=== PATIENT | female | born 1955 | race American Indian/Alaskan Native ===

== ENCOUNTER 2016-06-26 16:18 | Emergency (ER) | payer OTHER ==
[2016-06-26 20:23] VITALS: BP 177/84
[2016-06-26] MEDS ORDERED: TORADOL IM ONE (20:30)
--- NOTE | 2016-06-26 22:20 | Emergency Department Report ---
Entered by BRAULIO BONILLA, acting as scribe for GEOVANNA DERAS PA. ED General Adult HPI - General Chief complaint: Extremity Problem,Nontraumatic Stated complaint: LT SIDE PAIN Time Seen by Provider: 06/26/16 20:18 Source: patient Mode of arrival: Ambulatory Limitations: No Limitations - History of Present Illness Initial comments: 61 year old female presents to the ED for evaluation of left posterior hip pain for 3 days. Patient reports pain as constant and notes it worsens with movement , walking, and weight bearing. She describes the pain as constant with radiation to left thigh. Patient reports her job requires standing and walking for long periods of time. Denies any falls or injuries. Denies weakness, tingling, numbness, abdominal pain, nausea, vomiting, and urinary symptoms. PMHx HTN and CHF. Onset/Timin -: days(s) Location: back (left flank) Radiation: other (left thigh) Consistency: constant Improves with: none Worsens with: movement, other (walking) Associated Symptoms: denies: chest pain, fever/chills, nausea/vomiting, weakness , other (abdominal pain, urinary symptoms) Treatments Prior to Arrival: other (Tylenol PM and Tums, no relief) - Related Data Home Medications Medication Instructions Recorded Confirmed Last Taken Aspirin [Aspirin BABY CHEW TAB] 81 mg PO QDAY 03/12/14 03/12/14 03/11/14 Nebivolol HCl [Bystolic] 10 mg PO QDAY 03/12/14 03/12/14 03/11/14 Olmesartan (Nf) [Benicar (Nf)] 40 mg PO QDAY 03/12/14 03/12/14 03/11/14 Previous Rx's Medication Instructions Recorded Last Taken Type amLODIPine [Norvasc] 10 mg PO DAILY #60 tablet 03/12/14 Unknown Rx Naproxen [Naprosyn TAB] 500 mg PO BID #60 tablet 06/26/16 Unknown Rx Allergies Allergy/AdvReac Type Severity Reaction Status Date / Time hydralazine HCl [From BiDil] Allergy Vomiting Verified 06/26/16 16:23 isosorbide dinitrate Allergy Vomiting Verified 06/26/16 16:23 [From BiDil] ED Review of Systems Comment: All other systems reviewed and negative Constitutional: denies: chills, fever Gastrointestinal: denies: abdominal pain, nausea, vomiting Genitourinary: denies: urgency, dysuria, frequency, hematuria Neurological: denies: weakness, numbness, paresthesias ED Past Medical Hx - Past Medical History Previous Medical History?: Yes Hx Hypertension: Yes Additional medical history: Was diagnosed with heart failure years ago but says it has been controlled and she no longer takes meds for it other than 81 mg ASA - Surgical History Additional Surgical History: Partial hysterectomy, left wrist cyst removal, left breast surgery for benign cyst removal - Social History Smoking Status: Never Smoker Substance Use Type: None - Medications Home Medications: Home Medications Medication Instructions Recorded Confirmed Last Taken Type Aspirin [Aspirin BABY CHEW TAB] 81 mg PO QDAY 03/12/14 03/12/14 03/11/14 History Nebivolol HCl [Bystolic] 10 mg PO QDAY 03/12/14 03/12/14 03/11/14 History Olmesartan (Nf) [Benicar (Nf)] 40 mg PO QDAY 03/12/14 03/12/14 03/11/14 History amLODIPine [Norvasc] 10 mg PO DAILY #60 tablet 03/12/14 Unknown Rx Naproxen [Naprosyn TAB] 500 mg PO BID #60 tablet 06/26/16 Unknown Rx ED Physical Exam - General Limitations: No Limitations General appearance: alert, in no apparent distress - Head Head exam: Present: atraumatic, normocephalic - Respiratory Respiratory exam: Present: normal lung sounds bilaterally. Absent: respiratory distress, wheezes, rales, rhonchi - Cardiovascular Cardiovascular Exam: Present: regular rate, normal rhythm, normal heart sounds. Absent: systolic murmur, diastolic murmur, rubs, gallop - GI/Abdominal GI/Abdominal exam: Present: soft. Absent: distended, tenderness, guarding, rebound - Extremities Exam Extremities exam: Present: normal inspection, normal capillary refill (less than 2 seconds) - Expanded Lower Extremity Exam Left Hip exam: Present: normal inspection, full ROM (pain with external and internal rotation), tenderness (to palpation) Upper Leg exam: Present: normal inspection, full ROM. Absent: tenderness Knee exam: Present: normal inspection, full ROM. Absent: tenderness Lower Leg exam: Present: normal inspection, full ROM Ankle exam: Present: normal inspection, full ROM Neuro vascular tendon exam: Absent: no vascular compromise, pulse deficit, abnormal cap refill, motor deficit, sensory deficit Gait: Positive: not tested/not observed - Back Exam Back exam: Present: normal inspection. Absent: CVA tenderness (R), CVA tenderness (L), paraspinal tenderness, vertebral tenderness - Expanded Back Exam Expanded Back exam: Positive Straight Leg Raise: Left, Negative Straight Leg Raising: Right - Neurological Exam Neurological exam: Present: alert, oriented X3. Absent: motor sensory deficit - Psychiatric Psychiatric exam: Present: normal affect, normal mood - Skin Skin exam: Present: warm, dry, intact. Absent: rash, cyanosis ED Course Vital Signs 06/26/16 06/26/16 06/26/16 16:24 20:22 20:41 Temperature 97.9 F 98.8 F Pulse Rate 75 65 Respiratory 20 20 18 Rate Blood Pressure 128/71 Blood Pressure 177/84 [Left] O2 Sat by Pulse 100 100 Oximetry - Reevaluation(s) Reevaluation #1: 06/26/16 22:19 Reports that she feels much better now. We will discharge patient home. ED Medical Decision Making - Medical Decision Making Patient was evaluated in fast track area of ED by this provider. She presented c /o left posterior hip pain with radiation to left upper leg, no falls or injuries, no urinary symptoms. Torodal IM given in ED. Patient is in no acute distress at this time. She will be discharged home with prescription for Naproxen and is encouraged to follow up with a primary care provider. She is encouraged to return to the emergency room for any worsening symptoms. ED Disposition Clinical Impression: Bursitis Disposition: DISCHARGED TO HOME OR SELFCARE Is pt being admited?: No Does the pt Need Aspirin: No Condition: Stable Instructions: Hip Bursitis (ED) Additional Instructions: Take medication as prescribed. Follow up with primary care physician. Prescriptions: Naproxen [Naprosyn TAB] 500 mg PO BID #60 tablet Referrals: PRIMARY CARE,MD [Primary Care Provider] - 3-5 Days This documentation as recorded by the IRENE granados REBEKAH,accurately reflects the service I personally performed and the decisions made by ,GEOVANNA DERAS PA.
== END 2016-06-26 22:25 | disposition home or self-care (01) ==
LOC: ED 16:18
DX: M71.9 Bursopathy, unspecified (principal); I10 Essential (primary) hypertension; Z79.82 Long term (current) use of aspirin; Z88.8 Allergy status to other drugs, medicaments and biological substances
CPT/HCPCS: 96372; 99282; J1885

== ENCOUNTER 2018-10-01 15:01 | Emergency (ER) | payer OTHER ==
[2018-10-01 15:27] VITALS: BP 134/86
--- NOTE | 2018-10-01 15:40 | Event Note ---
ED Screening Note ED Screening Note: This is a 63 y.o. F. that presents to the ER with pain to right foot. Patient states she misstep and twisted her ankle. Reports ankle feel fine but pain to lateral foot with weight bearing. PMH CHF, HTN This initial assessment/diagnostic orders/clinical plan/treatment(s) is/are subject to change based on patients health status, clinical progression and re- assessment by fellow clinical providers in the ED. Further treatment and workup at subsequent clinical providers discretion. Patient/guardian urged not to elope from the ED as their condition may be serious if not clinically assessed and managed. Initial orders include: XR of right foot
--- NOTE | 2018-10-01 16:14 | XRay Report ---
Right foot-3 views INDICATION: r/o fracture, pain 4th 5th metatarsals. COMPARISON: None. IMPRESSION: Transversely oriented intra-articular fracture at the base of the fifth metatarsal with extension to the TMT joint but not clear extension to the intermetatarsal joint. Mild overlying swell ing. 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 Signer Name: Brad Negrete MD Signed: 10/01/2018 4:10 PM Workstation Name: [id number]
[2018-10-01] MEDS ORDERED: IBUPROFEN PO ONE (17:55)
--- NOTE | 2018-10-01 18:33 | Emergency Department Report ---
ED Lower Extremity HPI - General Chief Complaint: Fall Stated Complaint: FALL/R FOOT INJURY Time Seen by Provider: 10/01/18 15:37 Source: patient Mode of arrival: Ambulatory Limitations: No Limitations - History of Present Illness Initial Comments: This is a 63-year-old female nontoxic, well nourished in appearance, no acute signs of distress presents to the ED with c/o of right foot pain 1 day. Patient stated that she had a ground level fall from the car and twisted foot. Patient denies any other trauma. Patient denies any numbness, tingling, fever, chills, nausea, vomiting, chest pain, shortness of breath, headache, stiff neck. Patient denies any joint swelling or joint redness. Patient denies decreased range of motion. Patient stated has decreased gait due to pain. MD Complaint: foot injury -: This afternoon Injury: Foot: Right Place: street/outdoors Severity: mild Severity scale (0 -10): 8 Improves With: immobilization Worsens With: weight bearing, movement, palpation Context: fall Associated Symptoms: swelling, unable to bear weight. denies: snap/pop sensation, numbness, tingling, able to partially bear weight, ambulatory - Related Data Home Medications Medication Instructions Recorded Confirmed Last Taken Aspirin [Aspirin BABY CHEW TAB] 81 mg PO QDAY 03/12/14 03/12/14 03/11/14 Nebivolol HCl [Bystolic] 10 mg PO QDAY 03/12/14 03/12/14 03/11/14 Olmesartan (Nf) [Benicar (Nf)] 40 mg PO QDAY 03/12/14 03/12/14 03/11/14 Previous Rx's Medication Instructions Recorded Last Taken Type amLODIPine [Norvasc] 10 mg PO DAILY #60 tablet 03/12/14 Unknown Rx Naproxen [Naprosyn TAB] 500 mg PO BID #60 tablet 06/26/16 Unknown Rx Acetaminophen/Codeine [Tylenol 1 tab PO Q6H PRN #12 tab 10/01/18 Unknown Rx /Codeine # 3 tab] Allergies Allergy/AdvReac Type Severity Reaction Status Date / Time hydralazine HCl [From BiDil] Allergy Vomiting Verified 06/26/16 16:23 isosorbide dinitrate Allergy Vomiting Verified 06/26/16 16:23 [From BiDil] ED Review of Systems ROS: Stated complaint: FALL/R FOOT INJURY Other details as noted in HPI Constitutional: denies: chills, fever Eyes: denies: eye pain, eye discharge, vision change ENT: denies: ear pain, throat pain Respiratory: denies: cough, shortness of breath, wheezing Cardiovascular: denies: chest pain, palpitations Endocrine: no symptoms reported Gastrointestinal: denies: abdominal pain, nausea, diarrhea Genitourinary: denies: urgency, dysuria, discharge Musculoskeletal: denies: back pain, joint swelling, arthralgia Skin: denies: rash, lesions Neurological: denies: headache, weakness, paresthesias Psychiatric: denies: anxiety, depression Hematological/Lymphatic: denies: easy bleeding, easy bruising ED Past Medical Hx - Past Medical History Previous Medical History?: Yes Hx Hypertension: Yes Hx Congestive Heart Failure: Yes Additional medical history: Was diagnosed with heart failure years ago but says it has been controlled and she no longer takes meds for it other than 81 mg ASA - Surgical History Past Surgical History?: Yes Additional Surgical History: Partial hysterectomy, left wrist cyst removal, left breast surgery for benign cyst removal - Social History Smoking Status: Former Smoker Substance Use Type: Alcohol, Prescribed - Medications Home Medications: Home Medications Medication Instructions Recorded Confirmed Last Taken Type Aspirin [Aspirin BABY CHEW TAB] 81 mg PO QDAY 03/12/14 03/12/14 03/11/14 History Nebivolol HCl [Bystolic] 10 mg PO QDAY 03/12/14 03/12/14 03/11/14 History Olmesartan (Nf) [Benicar (Nf)] 40 mg PO QDAY 03/12/14 03/12/14 03/11/14 History amLODIPine [Norvasc] 10 mg PO DAILY #60 tablet 03/12/14 Unknown Rx Naproxen [Naprosyn TAB] 500 mg PO BID #60 tablet 06/26/16 Unknown Rx Acetaminophen/Codeine [Tylenol 1 tab PO Q6H PRN #12 tab 10/01/18 Unknown Rx /Codeine # 3 tab] ED Physical Exam - General Limitations: No Limitations General appearance: alert, in no apparent distress - Head Head exam: Present: atraumatic, normocephalic - Extremities Exam Extremities exam: Present: normal inspection, full ROM, tenderness, normal capillary refill. Absent: joint swelling, calf tenderness - Expanded Lower Extremity Exam Right Hip exam: Present: normal inspection, full ROM. Absent: tenderness, swelling Upper Leg exam: Present: normal inspection, full ROM. Absent: tenderness, swelling Knee exam: Present: normal inspection, full ROM. Absent: tenderness, swelling Lower Leg exam: Present: normal inspection, full ROM. Absent: tenderness, swelling Ankle exam: Present: normal inspection, full ROM. Absent: tenderness, swelling, abrasion, laceration, deformity, crepidus, dislocation, erythema, anterior draw sign Foot/Toe exam: Present: normal inspection, full ROM, tenderness, swelling, ecchymosis. Absent: abrasion, laceration, deformity, crepidus, dislocation, erythema, amputation, puncture wound, foreign body, calcaneal tenderness, tenderness at base of 5th metatarsal, nail avulsion, subungual hematoma Neuro vascular tendon exam: Present: no vascular compromise Gait: Positive: unable to bear weight - Back Exam Back exam: Present: normal inspection, full ROM. Absent: tenderness, CVA tenderness (R), CVA tenderness (L), muscle spasm, paraspinal tenderness, vertebral tenderness, rash noted - Neurological Exam Neurological exam: Present: alert, oriented X3 - Psychiatric Psychiatric exam: Present: normal affect, normal mood - Skin Skin exam: Present: warm, dry, intact, normal color. Absent: rash ED Course Vital Signs 10/01/18 15:23 Temperature 97.9 F Pulse Rate 97 H Respiratory 20 Rate Blood Pressure 134/86 O2 Sat by Pulse 94 Oximetry - Reevaluation(s) Reevaluation #1: 10/01/18 18:35 Patient is speaking in full sentences with no signs of distress noted. ED Lower Extremity MDM - Medical Decision Making This is a 63-year-old female that presents with right foot fracture. Patient is stable and was examined by me. I referred patient to an orthopedic doctor for further evaluation for possible MRI. X-ray has been obtained and dictated by the radiologist. Patient is notified of the x-ray report with noted by the patient. No joint redness or swelling. Not warm to touch. No signs of cellulit es present. Patient received a posterior short leg splint and patient has crutches here in the ED from home. Post splint assessment: neurovasular intact; normal cap refill <2 second; normal sensation; denies decreaed sensation; normal ROM of digits.. Patient was instructed to RICE therapy. Patient received Motrin for pain. Patient is discharged with Motrin and Tylenol with codeine. At time of discharge, the patient does not seem toxic or ill in appearance. No acute signs of distress noted. Patient agrees to discharge treatment plan of care. No further questions noted by the patient. Critical care attestation.: If time is entered above; I have spent that time in minutes in the direct care of this critically ill patient, excluding procedure time. ED Disposition Clinical Impression: Foot fracture, right Qualifiers: Encounter type: initial encounter Fracture type: closed Qualified Code(s): S92.901A - Unspecified fracture of right foot, initial encounter for closed fracture Disposition: TO HOME OR SELFCARE Is pt being admited?: No Does the pt Need Aspirin: No Condition: Stable Instructions: Foot Fracture in Adults (ED), RICE Therapy (ED), Splint Care (ED), Acetaminophen/Codeine (By mouth) Additional Instructions: Follow-up with a orthopedic doctor in 3-5 days or if symptoms worsen and continue return to emergency room as soon as possible. Do not operate any machinery while taking Tylenol with codeine as this may cause drowsiness. Prescriptions: Acetaminophen/Codeine [Tylenol /Codeine # 3 tab] 1 tab PO Q6H PRN #12 tab PRN Reason: Pain , Severe (7-10) Referrals: PRIMARY CARE, [Primary Care Provider] - 3-5 Days FOZIA RUSHING MD [Staff Physician] - 3-[address] [facility] [place] [Outside] - 3-5 Days [facility] [Outside] - 3-5 Days Forms: Work/School Release Form(ED)
== END 2018-10-01 19:00 | disposition home or self-care (01) ==
LOC: ED 15:01
DX: S92.901A Unspecified fracture of right foot, initial encounter for closed fracture (principal); I11.0 Hypertensive heart disease with heart failure; I50.9 Heart failure, unspecified; Z87.891 Personal history of nicotine dependence; Z79.899 Other long term (current) drug therapy; Z88.1 Allergy status to other antibiotic agents; Z88.8 Allergy status to other drugs, medicaments and biological substances; X50.1XXA Overexertion from prolonged static or awkward postures, initial encounter; Y93.89 Activity, other specified; Y92.89 Other specified places as the place of occurrence of the external cause; Y99.8 Other external cause status